=== PATIENT | male | born 1955 | race Two or more races ===

== ENCOUNTER 2022-09-25 05:13 | Day surgery (SDC) | payer OTHER ==
[~2022-09-25] VITALS: Ht 167.6 cm; Wt 88.5 kg
[~2022-09-25 05:13] MED LIST: CHILDREN'S ASPI81 MG PO; INDUR PO; LIPITOR40 MG PO; PLAVIX75 MG PO; ZESTRIL10 M1 PO; ZETIA10 MG PO
== END 2022-09-25 10:55 | disposition home or self-care (01) ==
LOC: CIR.AMB 05:13
PROVIDERS: ATTEND Surgery
DX: K80.10 Calculus of gallbladder with chronic cholecystitis without obstruction (principal); I10 Essential (primary) hypertension; Z20.822 Contact with and (suspected) exposure to COVID-19